=== PATIENT | male | born 1945 | race Caucasian/White ===

== ENCOUNTER → 2023-09-29 | Outpatient (CLI) | payer OTHER, SELFPAY ==
--- NOTE | 2023-09-29 14:16 | ECHOD_ITS ---
Reason For Study: CHRONIC ISCHEMIC HEART DISEASE Procedure This was a 2D Doppler, Color Flow transthoracic echocardiogram. Exam performed in department. Bubble study not performed due to shunt in intratrial septum BY COLOR & PW DOPPLER. Left Ventricle Normal LV size. The estimated ejection fraction is 20 %. There is severe global hypokinesis of the left ventricle. Right Ventricle Normal RV size. Normal systolic function. Atria The left atrium is mildly enlarged. Normal right atrium. Small ASD/PFO with [id number] shunt. Mitral Valve There is no mitral valve stenosis. Trivial mitral valve insufficiency. Tricuspid Valve There is no tricuspid stenosis. Mild tricuspid valve insufficiency. Pulmonary artery systolic pressure is 35 mmHg. Aortic Valve The arctic valve appears to be a bioprosthetic valve with no significant stenosis or regurgitation. Pulmonic Valve There is no pulmonic valvular stenosis. Trivial pulmonic valve insufficiency. Great Vessels Normal aortic root. Pericardium/Pleural No pericardial effusion. MMode/2D Measurements & Calculations LVIDd: 5.1 cm IVSd: 1.3 cm Ao root diam: 3.0 cm LVIDs: 4.3 cm LVPWd: 1.3 cm RVDd: 4.4 cm FS: 14.2 % LAV(MOD-bp): 79.5 ml LVAd ap4: 36.0 cm2 LVAd ap2: 38.2 cm2 LAV(MOD-bp) Indexed: 40.2 ml/m2 LVLd ap4: 9.8 cm LVLd ap2: 10.4 cm LAV(MOD-sp2): 76.1 ml EDV(MOD-sp4): 115.5 ml EDV(MOD-sp2): 117.4 ml LAV(MOD-sp4): 79.1 ml EDV(sp4-el): 112.5 ml EDV(sp2-el): 119.2 ml LVAs ap4: 27.8 cm2 LVAs ap2: 29.3 cm2 LVLs ap4: 9.0 cm LVLs ap2: 9.6 cm ESV(MOD-sp4): 73.1 ml ESV(MOD-sp2): 75.5 ml ESV(sp4-el): 72.6 ml ESV(sp2-el): 76.1 ml EF(MOD-sp4): 36.8 % EF(MOD-sp2): 35.7 % EF(sp4-el): 35.4 % SV(MOD-sp4): 42.5 ml SV(MOD-sp2): 41.9 ml SV(sp4-el): 39.8 ml TAPSE: 1.2 cm LA A4 area: 24.6 cm2 RA A4 area: 25.1 cm2 Time Measurements MV dec time: 0.18 sec Doppler Measurements & Calculations MV E max tristen: 65.8 cm/sec Lat Peak E' Tristen: 7.9 cm/sec Med Peak E' Tristen: 5.6 cm/sec MV A max tristen: 89.5 cm/sec E/E' lat: 8.4 E/E' med: 11.6 MV E/A: 0.73 MV V2 max: 116.1 cm/sec MV P1/2t max tristen: 65.2 cm/sec Ao V2 max: 206.6 cm/sec MV max P.4 mmHg MV P1/2t: 53.1 msec Ao max P.1 mmHg MV V2 mean: 65.4 cm/sec MV dec slope: 359.7 cm/sec2 Ao V2 mean: 151.3 cm/sec MV mean P.0 mmHg Ao mean P.0 mmHg MV V2 VTI: 24.5 cm MVA(P1/2t): 4.1 cm2 Ao V2 VTI: 40.3 cm AV (velocity ratio): 0.58 LV V1 max: 120.3 cm/sec PA V2 max: 156.6 cm/sec TR max tristen: 283.4 cm/sec LV V1 max P.8 mmHg PA V2 mean: 89.0 cm/sec TR max P.1 mmHg LV V1 mean P.6 mmHg LV V1 mean: 90.1 cm/sec LV V1 VTI: 23.3 cm ECHO/Echo Complete Interpretation Summary The estimated ejection fraction is 20 %. There is severe global hypokinesis of the left ventricle. The left atrium is mildly enlarged. Small ASD/PFO with [id number] shunt Trivial mitral valve insufficiency. Ordering Physician: Beny Salas Referring Physician: [facility] Performed By: Vidhya Sage, GABI, RVT
== END | disposition home or self-care (01) ==
PROVIDERS: Referring Provider Chiropractor; Visit Provider Chiropractor
DX: I25.9 Chronic ischemic heart disease, unspecified (principal); Q21.12 Patent foramen ovale
CPT/HCPCS: 93306